=== PATIENT | male | born 1940 | race Caucasian/White ===

== ENCOUNTER 2024-01-25 13:09 | Outpatient (AMB) | payer BC, SELFPAY ==
--- NOTE | 2024-01-25 13:08 | AM.OFFWIN_ITS ---
Intake Vital Signs 01/25/24 13:13 Height 6 ft Weight 198 lb 2 oz BMI 26.9 BP 114/68 Blood Pressure Location Rt brachial Position Sitting Pulse 58 Pulse Source Pulse Oximeter Temp 97.6 F Temp Source Oral Pulse Oximetry (%) 93 Oxygen Delivery Method Room Air Intake Visit Reasons: [employer] congestion LFT ear blocked nausea Intake Note: pt is here today for congestion left ear blocked nausea which started about 3 weeks ago and states there hasnt been any improvement. Allergies No Known Allergies [No Known Allergies*] Allergy (Unverified 01/25/24 13:58) Medication List - Last Reconciled 01/25/24 by Gennaro Fernando MD amiodarone 200 mg PO DAILY amlodipine 5 mg PO DAILY atorvastatin 40 mg PO DAILY lisinopril 20 mg PO BID metoprolol succinate ER 25 mg PO DAILY omeprazole 20 mg PO DAILY oxybutynin chloride ER 5 mg PO DAILY rivaroxaban (Xarelto) 20 mg PO DAILY HPI [employer] congestion LFT ear blocked nausea HPI Details 83-year-old male presents to the office for a sick visit. For the past 2 weeks patient is reporting symptoms of congestion, ear congestion. Decrease in appetite. [facility] Social History (Updated 01/25/24 @ 13:18 by Cindy Rodriguez [facility]) Alcohol intake: never Patient Tobacco Use Status: Never used Tobacco Physical Exam Vital Signs: Last Vital Signs Temp 97.6 F 01/25/24 13:13 Pulse 58 01/25/24 13:13 BP 114/68 01/25/24 13:13 Pulse Ox 93 01/25/24 13:13 Oxygen Delivery Method Room Air 01/25/24 13:13 BMI result Body Mass Index 26.9 Const General: cooperative and healthy appearing Nutritional Appearance: well nourished Orientation/consciousness: patient oriented x3 Limitations: no limitations HEENT Head: Yes normal to inspection Eyes General: appearance normal, both eyes and all related structures Neck Neck: Yes normal visual inspection Chest Chest palpation & inspection: normal palpation of entire chest wall Resp Other: Decreased breath sounds bilaterally. Effort & Inspection: normal respiratory effort Neuro General: patient oriented x3 Assessment & Plan Assessment & Plan (1) Pneumonia: Code(s): J18.9 - Pneumonia, unspecified organism Plan: X rays revd by me. Possible basilar infiltates. Will be treated for pneumonia. Antibiotics ordered. Orders: Orders XR chest 2V Today R05.9 - Cough, unspecified Basic Metabolic Panel Today J18.9 - Pneumonia, unspecified organism Complete Blood Count no Diff Today J18.9 - Pneumonia, unspecified organism Thyroid Stimulating Hormone Today J18.9 - Pneumonia, unspecified organism Liver Panel Today J18.9 - Pneumonia, unspecified organism Erythrocyte Sedimentation Rate Today J18.9 - Pneumonia, unspecified organism Coding Level of Care Code Est Pt Level 4 (70274) Diagnoses Pneumonia J18.9
[2024-01-25 13:13] VITALS: BP 114/68; PULSE 58; TEMP 36.4; O2SAT 93; BMI 26.9
== END 2024-01-25 14:05 | disposition home or self-care (01) ==
PROVIDERS: PCP Internal Medicine; Visit Provider Internal Medicine
DX: J18.9 Pneumonia, unspecified organism (principal)
CPT/HCPCS: 99214

== ENCOUNTER 2024-01-25 13:35 | Outpatient (REF) | payer BC, SELFPAY ==
--- NOTE | ~2024-01-25 | XR_ITS ---
EXAMINATION: XR chest 2V CLINICAL INFORMATION: Reason for Exam R05.9 - Cough, unspecified COMPARISON: None TECHNIQUE: 2 views of the chest FINDINGS: Right lung base hazy opacities may reflect aspiration, atelectasis, or infection. No pneumothorax or pleural effusion. Normal cardiomediastinal silhouette. XR/XR chest 2V Impression: Right lung base hazy opacities may reflect aspiration, atelectasis, or infection.
[2024-01-25 16:21] LABS: Hematocrit 39.7 % (42.0-52.0); Hemoglobin 13.8 g/dl (14.0-18.0); Mean Corpuscular HGB Conc 34.8 g/dl (31.0-36.0); Mean Corpuscular Hemoglobin 30.8 pg (27.0-33.0); Mean Corpuscular Volume 88.6 fL (80.0-98.0); Platelet Count 355 X10*3/uL (160-400); Red Blood Count 4.48 X10*6/uL (4.60-5.80); Red Cell Distribution Width 13.5 % (11.0-16.0); White Blood Count 7.2 X10*3/uL (4.8-10.8)
[2024-01-25 16:57] LABS: Erythrocyte Sedimentation Rate 28 MM/HR (0-15)
[2024-01-25 17:00] LABS: Alanine Aminotransferase 131 U/L (0-40); Albumin Level 3.3 g/dL (3.5-5.0); Alkaline Phosphatase 64 U/L (39-117); Anion Gap 10 (12-20); Aspartate Amino Transferase 57 U/L (5-37); Bilirubin Direct 0.4 mg/dL (0.0-0.5); Blood Urea Nitrogen 13 mg/dL (9-16); Calcium 9.1 mg/dL (8.4-10.2); Carbon Dioxide 30 mmol/L (22-29); Chloride 103 mmol/L (96-108); Estimated Glomerular Filt Rate > 60; Glucose Random 100 mg/dL (60-115); Potassium 4.1 mmol/L (3.3-5.1); Sodium 139 mmol/L (135-145); Total Protein 5.8 g/dL (6.5-8.0)
[2024-01-25 17:17] LABS: Thyroid Stimulating Hormone 0.58 uIU/mL (0.32-4.0)
== END 2024-01-25 13:36 | disposition home or self-care (01) ==
LOC: HO.HMGCX 13:35
PROVIDERS: PCP Internal Medicine; Visit Provider Internal Medicine
DX: R05.9 Cough, unspecified (principal); J18.9 Pneumonia, unspecified organism
CPT/HCPCS: 36415; 71046; 80048; 80076; 84443; 85027; 85652

== ENCOUNTER 2024-09-14 10:47 | Outpatient (AMB) | payer BC, SELFPAY ==
--- NOTE | 2024-09-14 10:49 | MHC.OFFWIV ---
Intake Vital Signs 09/14/24 10:54 Weight 202 lb BP 92/60 Blood Pressure Location Rt brachial Position Sitting Pulse 71 Pulse Source Pulse Oximeter Pulse Oximetry (%) 98 Oxygen Delivery Method Room Air Intake Visit Reasons: EP dizzy, nausea, low bp Intake Note: Patient here for low BP,passing out and nausea that has been present December and has not improved. Patient Tobacco Use Status: Never used Tobacco Allergies No Known Allergies [No Known Allergies*] Allergy (Unverified 09/14/24 10:55) Do you need a note to return to daycare/school/sports/work: No HPI EP dizzy, nausea, low bp HPI Details This note is constructed using voice recognition software. While every effort has been made to ensure accuracy, local telephone operator errors may have been included. The patient is a 84 year old male who presents to the clinic today with chronic intermittent dizziness, nausea, and low bp at home. He notes he has been working with his primary care provider since at least December in regards to his symptoms. He notes that he also has lower energy in his getting tired more frequently as well as neck pain. In the past he tried heat for his neck pain once, and it did help but he is not continue to treat this.. His primary care provider recently had him stop Co Q10, folic acid, and vitamin-D for polypharmacy. He has been evaluated by a neurosurgeon, and we will now be getting evaluated by Neurology, has also seen a broommaker in regards to his symptoms. He started vestibular rehab, which has helped a great deal. He denies current lightheadedness or dizziness, but is concerned the symptoms continue. His blood pressure at home was 110/60, and he has been monitoring this regularly with the assistance of his . He denies chest pain, palpitations, dyspnea, diaphoresis. [facility] Social History (Updated 01/25/24 @ 13:18 by Cindy Rodriguez [facility]) Alcohol intake: never Patient Tobacco Use Status: Never used Tobacco Review of Systems Const All systems reviewed & are unremarkable except as noted in HPI and below Physical Exam Vital Signs: Last Vital Signs Pulse 71 09/14/24 10:54 BP 92/60 09/14/24 10:54 Pulse Ox 98 09/14/24 10:54 Oxygen Delivery Method Room Air 09/14/24 10:54 Const General: cooperative, healthy appearing, comfortable, no acute distress and well developed Orientation/consciousness: patient oriented x3 Limitations: no limitations Eyes Other: Horizontal nystagmus present General: appearance normal, both eyes and all related structures Neck Other: Bilateral cervical increased muscle bulking. Neck: Yes normal visual inspection and Yes full ROM Resp Effort & Inspection: normal respiratory effort and able to speak in complete sentences Auscultation: clear to auscultation bilaterally Cardio Rate: regular rate Rhythm: regular rhythm Heart sounds: Murmur heart sound present and no rubs Skin General skin exam: no rashes or lesions noted Neuro General: patient oriented x3 Cranial nerves: Yes CN's II-XII intact bilaterally Extrem General: Yes normal to inspection Assessment & Plan Assessment & Plan (1) Vertigo: Code(s): R42 - Dizziness and giddiness Plan: Advised continuation of vestibular rehab, which is already in place. Advised ER with sudden acute worsening, including symptoms that do not resolve/are persistent. (2) Hypotension: Code(s): I95.9 - Hypotension, unspecified Qualifiers: Hypotension type: unspecified hypotension type Qualified Code(s): I95.9 - Hypotension, unspecified Plan: Patient currently is on triple therapy for hypertension. His last medication added was amlodipine, 5 mg. Advised him to hold this for the next few days, and follow up with his PCP in regards to his blood pressure. Advised him to continue to monitor his blood pressure, specifically noting any symptoms he may be having. Advised to increase hydration efforts at home. (3) Neck strain: Code(s): S16.1XXA - Strain of muscle, fascia and tendon at neck level, initial encounter Qualifiers: Encounter type: initial encounter Qualified Code(s): S16.1XXA - Strain of muscle, fascia and tendon at neck level, initial encounter Plan: Advised rest, heat, muscle rubs. Advised avoidance of NSAIDs given chronic use of anticoagulant therapy. Advised follow up with PCP as planned. Plan See above for full details and plan. Coding Level of Care Code Est Pt Level 3 (73926) Diagnoses Vertigo R42 Hypotension, unspecified hypotension type I95.9 Hypotension type: unspecified hypotension type Strain of neck muscle, initial encounter S16.1XXA Encounter type: initial encounter
[2024-09-14 10:54] VITALS: BP 92/60; PULSE 71; O2SAT 98
== END 2024-09-14 12:04 | disposition home or self-care (01) ==
PROVIDERS: PCP Internal Medicine; Visit Provider Registered Nurse
DX: R42 Dizziness and giddiness (principal); I95.9 Hypotension, unspecified; S16.1XXA Strain of muscle, fascia and tendon at neck level, initial encounter

== ENCOUNTER 2025-07-15 14:00 | Outpatient (AMB) | payer BC, SELFPAY ==
--- OUTSIDE RECORDS SUMMARY | 2025-07-15 14:02 | XMS_ITS | Data Portability ---
Author Organization [place] - [facility], Allergy Address [address] [place] [id number] Care Team Providers Care Supervisor Contingents Name Role Phone ALMA ROSA DE SOUZA Primary Care Provider Assessment Encounter Date Assessment Date Assessment LastModified by Organization Details LastModified Time 08/30/2024 08/30/2024 1. Benign paroxysmal positional vertigo The patient's signs and symptoms today are consistent with benign paroxysmal positional vertigo. His audiogram today was consistent with his prior audiogram which shows bilateral sensorineural hearing loss. He continues to have improvement with vestibular physical therapy, and so he should continue to undergo this until his symptoms have resolved. PLAN: - Continue vestibular rehabilitation - follow-up prn 2. Bilateral sensorineural hearing loss Audiogram was reviewed and interpreted independently today. The patient has been medically cleared for hearing aids. [email or web address] Not available 08/30/2024 12:09:21 Plan of Treatment Reminders Order Date Submit Date Provider Last Modified By Organization Details Last Modified Time Details Appointments None record ed. Lab None record ed. Referral None record ed. Procedures None record ed. Surgeries None record ed. Imaging None record ed. Medication Orders None record ed. Patient TargetsNo targets recorded. Patient InstructionsNo instructions recorded. Reason for Referral None Reported. Results Created Date Observation Date Name Description Value Unit Range Abnormal Flag Note LastModifiedBy Organization Detail LastModifiedTime 08/31/20 24 audio gram No observ ation record ed. BARCODE Not Available 2023 10:57:51 09/01/20 24 audio gram No observ ation record ed. BARCODE Not Available 2023 09:37:16 Result Notes None recorded. Problems Name Problem SNOMED Code Status Onset Date Resolution Date Notes Provider Name and Address Organization Details Recorded Time Sensorine ural hearing loss of bilateral ears 588263981 Active 2019 Sensorine ural hearing loss, bilateral ; Note: Date Diagnosed : 11/03/2019 2:39 PM (H90.3) Not Available [facility] 4 02:37:49 Bilateral tinnitus 49028449636 02 Active 2019 Tinnitus, bilateral ; Note: Date Diagnosed : 11/03/2019 3:08 PM (H93.13) Not Available [facility] 4 02:37:45 Sudden idiopathi c hearing loss 926344061 Active 2019 Sudden idiopathi c hearing loss, bilateral ; Note: Date Diagnosed : 11/03/2019 3:12 PM (H91.23) Not Available [facility] 4 02:37:51 Dizziness and giddiness 455862881 Active 2023 JAZMYNE DE LA O [address] [place] [address],[place] [address], [place], [phone] , [facility] 4 11:09:52 Benign paroxysma l positiona l vertigo 603820085 Active 2023 SUMEET LOFTON MD [address] [place] [address], [place], [phone] , [facility] 12:09:35 Problem Notes None recorded. Procedures Surgical History Date Name Laterality Status Provider Name and Address Organization Details Recorded Time 08/30/20 24 otomicroscopy completed SUMEET LOFTON MD [address] [place] [address], [place], [phone], [facility] 08/30/2024 12:08:04 08/30/20 24 Air & Speech Audio with Tymps - [id number], [id number] & [id number] completed JAZMYNE DE LA O [address] [place] [address],[address], [phone], [facility] 08/30/2024 11:09:35 Imaging Results None recorded. Procedure Notes None recorded. Medical Equipment None Reported. Allergies No known drug allergies Medications Name Sig Start Date Stop Date Status Note LastModified by Organization Details LastModified Time amoxicillin 500 mg capsule active Not Available Not Available Not Available atorvastati n 40 mg tablet active Not Available Not Available Not Available metoprolol tartrate 100 mg tablet 03/20 completed Medication ID: [id number] Dur ation Value: 90 Brand Name: metoprolol tartrate S end Method: E-Prescrib ed Subs Allowed: subs OK Medicat ionGeneric Name: metoprolol tartrate Not Available Not Available Not Available amiodarone 200 mg tablet active Medication ID: [id number] Denilson nd Name: amiodarone Send Method: E-Prescrib ed Subs Allowed: subs OK Medicat ionGeneric Name: amiodarone Not Available Not Available Not Available lisinopril 20 mg tablet active Not Available Not Available Not Available ondansetron HCl 4 mg tablet active Not Available Not Available Not Available amlodipine 5 mg tablet active Not Available Not Available Not Available folic acid 400 mcg tablet 03/20 completed Medication ID: [id number] Denilson nd Name: folic acid Send Method: E-Prescrib ed Subs Allowed: subs OK Medicat ionGeneric Name: folic acid Not Available Not Available Not Available cephalexin 500 mg capsule active Not Available Not Available Not Available simvastatin 20 mg tablet 03/20 completed Medication ID: [id number] Dur ation Value: 30 Brand Name: simvastati n Send Method: E-Prescrib ed Subs Allowed: subs OK Medicat ionGeneric Name: simvastati n Not Available Not Available Not Available oxybutynin chloride ER 5 mg tablet,exte nded release 24 hr active Not Available Not Available Not Available omeprazole 20 mg capsule,del ayed release active Not Available Not Available Not Available hydralazine 50 mg tablet 03/20 completed Medication ID: [id number] Dur ation Value: 90 Brand Name: hydralazin e Send Method: E-Prescrib ed Subs Allowed: subs OK Medicat ionGeneric Name: hydralazin e Not Available Not Available Not Available hydrochloro thiazide 25 mg tablet active Not Available Not Available No t Available metoprolol succinate ER 25 mg tablet,exte nded release 24 hr active Not Available Not Available Not Available bromfenac 0.09 % eye drops active Not Available Not Available Not Available Vitamin D3 10 mcg (400 unit) capsule 03/20 completed Medication ID: [id number] Bra nd Name: Vitamin D3 Send Method: E-Prescrib ed Subs Allowed: subs OK Medicat ionGeneric Name: Vitamin D3 Not Available Not Available Not Available CoQ-10 100 mg capsule 03/20 completed Medication ID: [id number] Bra nd Name: CoQ-10 Sen d Method: E-Prescrib ed Subs Allowed: subs OK Medicat ionGeneric Name: CoQ-10 Not Available Not Available Not Available Xarelto 20 mg tablet active Not Available Not Available No t Available Vitals Date Recorded Body height Body mass index (BMI) Body weight Provider Name and Address Organization Details Last Updated DateTime 08/30/2024 182.88 cm 28.5 kg/m2 53793.4 g Elizabeth Fagan [place] - [facility] 08/30/2024 11:22:02 Social History None recorded. Functional Status Question Answer Note LastModified by Organization D etails LastModified Time What is your level of alcohol consumption? None [email or web address] Information not available 08/30/2024 Mental Status None recorded. Family History Nothing Reported. Medical History No medical history recorded. Past Encounters Encounter ID Performer Location Encounter Start Date Encounter Closed Date Diagnosis/Indication Diagnosis SNOMED-CT Code Diagnosis ICD10 Code Diagnosis IMO Codes Diagnosis Note [id number] SUMEET LOFTON MD [facility] [address] [phone] 08/30/2024 10:42:56 08/30/2024 11:45:42 Sensorineural hearing loss of bilateral ears 128552175 H90.3 Right Ear:Modera tely-sever e to profound SNHL with poor speech discrimina tion.Type A tympanogra m.Left Ear:Modera te to profound SNHL with good speech discrimina tion.Type A tympanogra m. Dizziness and giddiness 092025963 R42 Benign par oxysmal positional vertigo 435959562 H81.11 Health Concerns Section Related Observation LastModified by Organization Detai ls LastModified Time None Recorded Concern Status LastModified by Organization Details LastModified Time None Recorded Advance Directives Directive None Recorded Payers Insurance Date Sequence Insurance Name Policy Number Policy Zuniga Covered Member ID Zuniga Member ID Guarantor Name 10/05/2024 1 [place] [place] [place]) 113 Tato Ferreira [id number] Tato Ferreira Notes Date Note Type Note Provider Name and Address Organization Details Recorded Time 08/30/2024 text/html ROS as noted in the HPI This is an 84-year-old gentleman who presents today for evaluation of dizziness. He has had ongoing vertigo symptoms since January 2024. His symptoms are characterized by room spinning sensation which occurs with quick head movements. He has had an extensive workup secondary to presentations to multiple emergency departments. He has had CT head, which was normal. He has already been to vestibular therapy sent by his PCP. He has noticed a significant improvement of his symptoms with just 3 sessions. He is here today for evaluation of an audiogram. History of cerumen impaction: noneHearings loss: yes - senior living history, wears hearing aidsQtip use: noneTinnitus: intermittentVertigo : yes, room spinning, lasts seconds - minutes with quick head movementsPain: noneDrainage: noneHistory of ear infections: noneHistory of ear surgeries: none Audiogram was reviewed and interpreted independently today, which shows severe bilateral sensorineural hearing loss. SUMEET LOFTON MD [address] [place] [address], [phone], [place] - [facility] 08/30/2024 12:10:19
[2025-07-15 14:07] VITALS: BP 112/70; PULSE 70; O2SAT 99
--- NOTE | 2025-07-15 14:07 | MHC.OFFWIV ---
Intake Vital Signs 07/15/25 14:07 Height 6 ft BMI Reason not done Patient refused/unable BP 112/70 Blood Pressure Location Rt brachial Position Sitting Pulse 70 Pulse Source Pulse Oximeter Pulse Oximetry (%) 99 Intake Visit Reasons: EP wound on left arm Patient Tobacco Use Status: Never used Tobacco Allergies No Known Allergies (No Known Allergies*) Allergy (Verified 07/15/25 14:07) Do you need a note to return to daycare/school/sports/work: No HPI HPI Comments History of Present Illness Details 84-year-old male history of hypertension, hyperlipidemia, arrhythmia on Xarelto presenting to the clinic with concerns of skin tear to the left forearm. Patient reports he softly swiped his left arm against a door frame resulting in a skin tear. He reports since then the bleeding has stopped however they are still slight bleeding. He wanted to get looked at. He is not up-to-date on a Boostrix shot. Denies numbness or tingling or significant pain. This happened just prior to arrival. Denies fevers, chills, headache, vision changes, chest pain, shortness of breath, changes in gait. Physical exam moderate size skin tear to left forearm with very mild bleeding. Distal sensation intact 2+ radial pulses equal bilateral. Likely simple skin tear skin is very frail repair is not appropriate. Unlikely fracture dislocation Area was cleaned, bacitracin and nonadhesive applied to the area. Patient received his Boostrix shot. I will also send him on doxy x7 days. Educated patient on diagnosis and treatment plan, answered all question, patient verbalizes understanding. At this time patient will be discharged home, advised to return with new or worsening symptoms. Educated on worrisome signs and symptoms and when to return. At this time I feel comfortable discharge home. [facility] Social History (Updated 01/25/24 @ 13:18 by Cindy Rodriguez [facility]) Alcohol intake: never Patient Tobacco Use Status: Never used Tobacco Review of Systems Const All systems reviewed & are unremarkable except as noted in HPI and below Physical Exam Exam Exam: Appearance: Alert.? Oriented X3.? No acute distress.? Head: Normocephalic, atraumatic, no step-offs or deformities Eyes: Pupils equal, round and reactive to light.? ENT: Pharynx normal.? Neck: Normal inspection.? Neck supple.? CVS: Pulses normal.? Respiratory: No respiratory distress.? Skin: Skin warm and dry.? Normal skin color.? Normal skin turgor.? +moderate size skin tear to left forearm with very mild bleeding. Distal sensation intact 2+ radial pulses equal bilateral. Extremities: No lower extremity edema.? No calf ttp. 5/5 strength to bilateral upper and lower extremities Neuro: Oriented X 3.? No motor deficit.? No sensory deficit. CN 2-12 intact Vital Signs: Last Vital Signs Pulse 70 07/15/25 14:07 BP 112/70 07/15/25 14:07 Pulse Ox 99 07/15/25 14:07 vss Assessment & Plan Assessment & Plan (1) Skin tear of forearm without complication: Code(s): S51.819A - Laceration without foreign body of unspecified forearm, initial encounter Plan Take your medications as prescribed. If you were prescribed antibiotics today, it is important that you take your medication to their entirety, do not skip any doses, do not finish them early. Follow-up with your primary care provider this week. Return to the emergency department with new or worsening symptoms. Such as fevers, chills, chest pain, shortness of breath, nausea, vomiting, dizziness, headache, vision changes, lethargy In case of emergency call 911 Orders: Orders TDaP Immunization Today Z23 - Encounter for immunization Medications: New Boostrix Tdap (diphth,pertus(acell),tetanus) 0.5 mL IM ONCE 0.5 mL 0RF NS Z23 - Encounter for immunization doxycycline hyclate 100 mg PO BID 14 caps 0RF 7 days Coding Level of Care Code Est Pt Level 3 (27629) Diagnoses Skin tear of forearm without complication S51.819A
== END 2025-07-15 14:49 | disposition home or self-care (01) ==
PROVIDERS: PCP Internal Medicine; Visit Provider Physician Assistant
DX: Z23 Encounter for immunization (principal); S51.819A Laceration without foreign body of unspecified forearm, initial encounter

== ENCOUNTER → 2025-07-15 14:00 | Outpatient (BNVA) | payer BC, SELFPAY | PROVIDERS: PCP Internal Medicine; Visit Provider Physician Assistant | DX: Z23 Encounter for immunization (principal) | CPT/HCPCS: 90471; 90715 ==